=== PATIENT | female | born 1985 | race Caucasian/White ===

== ENCOUNTER 2021-11-25 10:15 | Outpatient (RCR) | payer BC ==
[~2021-11-25 10:15] MED LIST: MOTRIN 600600 MG/TAB PO; PRENATAL1 TA1 PO; SLOW FE45 MG PO; TYLENOL PM EXTR1 TA1 PO
== END 2021-12-05 | disposition home or self-care (01) ==
LOC: PT.GENESIS
DX: M54.50 Low back pain, unspecified (principal); G89.29 Other chronic pain

== ENCOUNTER 2024-03-25 10:31 | Day surgery (SDC) | payer BC ==
[~2024-03-25] VITALS: Ht 170.2 cm; Wt 123.6 kg
[~2024-03-25 10:31] MED LIST changes: +LR 1,000 ML IV SCH; +NORCO 325 MG-51 TAB PO; +Ondansetron 4 MG/2 ML VIAL IV PRN; +PROTONIX 40MG T40 MG PO; +ZOFRAN ODT4 MG PO
[2024-03-25 12:16] VITALS: BP 131/85; PULSE 91; TEMP 96.6
[2024-03-25] MEDS ORDERED: PROTONIX 40MG T40 MG PO (12:21)
[2024-03-25] MEDS ORDERED: BRINTELLIX10 (12:21)
[2024-03-25] MEDS ORDERED: XANAX .25M0.25 MG/TA PO (12:22)
[2024-03-25] MEDS ORDERED: VITAMIN D250 MCG PO (12:22)
[2024-03-25] MEDS ORDERED: LYRICA 25MG CAP25 MG PO (12:23)
[2024-03-25] MEDS ORDERED: NEURONTIN300 MG/CAP PO (12:23)
[2024-03-25] MEDS ORDERED: ZESTORETIC 12.51 TA1 PO (12:24)
[2024-03-25 13:00] VITALS: BP 126/75; PULSE 86; TEMP 97
--- NOTE | 2024-03-25 13:00 | NUR ---
1300: Pt arrives to [facility] via cart, alert. Pt amb to chair, mom present in room. VSS on RA, denies nausea/abd pain. 1310: Dr Inman in to talk to pt. Provided PO sprite/muffin. 1320: Tolerates PO without n/v. Discharge instructions reviewed with understanding verbalized. Questions invited and answered.
[2024-03-25 13:15] VITALS: BP 114/80; PULSE 82
== END 2024-03-25 13:30 | disposition home or self-care (01) ==
LOC: SDCO 10:31
DX: K92.1 Melena (principal); K62.89 Other specified diseases of anus and rectum; K64.0 First degree hemorrhoids; K64.4 Residual hemorrhoidal skin tags; R19.7 Diarrhea, unspecified; E66.9 Obesity, unspecified; Z83.79 Family history of other diseases of the digestive system; Z79.1 Long term (current) use of non-steroidal anti-inflammatories (NSAID); Z79.899 Other long term (current) drug therapy
CPT/HCPCS: J2704; J7120